=== PATIENT | female | born 1950 | race Two or more races ===

== ENCOUNTER 2017-05-10 13:30 | Outpatient (CLI) | payer MEDICARE, OTHER ==
[~2017-05-10] VITALS: Ht 157.5 cm; Wt 3.2 kg
[2017-05-10 14:03] VITALS: BP 110/48
[2017-05-10] MEDS ORDERED: AMOXICILLIN500 MG ORAL (14:05)
[2017-05-10] MEDS ORDERED: OMEPRAZOLE40 M1 ORAL (14:05)
[2017-05-10] MEDS ORDERED: DICYCLOMINE HCL10 MG PO (14:05)
--- NOTE | 2017-05-10 15:26 | GI Initial Consult Note ---
History of Present Illness General Date patient seen: May 10, 2017 Time patient seen: 15:21 Referring physician: N/A Reason for Consultation: EPIGASTRIC PAIN Present Illness HPI 66 year old female presents today with c/o of epigastric pain that started approximately 6 months ago. Patient states the pain is present on a daily basis now. She states she has pressure on her chest which radiates to the back and also both arms. In addition, the patient has occasional symptoms of GERD. Unknown history of endoscopic procedures. Denies weight loss. Good PO intake. Good BM. Home Meds Reported Medications Amoxicillin* (AMOXIL*) 500 Mg Capsule, 500 MG ORAL EVERY 8 HOURS, CAP 05/10/17 Omeprazole (OMEPRAZOLE) 40 Mg Capsule.dr, 40 MG ORAL DAILY, CAP 05/10/17 Dicyclomine Hcl* (DICYCLOMINE HCL*) 10 Mg Capsule, 20 MG PO QID, CAP 05/10/17 Med list reviewed/reconciled: Yes Allergies: Coded Allergies: No Known Allergies (Unverified , 05/10/17) Patient History History Provided By: Patient PMH Narrative GERD duodenum (small bowel) polyp hx of SBO PSHx 10 years ago, duodenal polyp removal @ [place], [place]. Family History Narrative No history of cancer. Social History: Reports: other - coffee, Denies: alcohol use, drug use, smoking Review of Systems All Other Systems: negative except mentioned in HPI Physical Exam Vital Signs Date Time Temp Pulse Resp B/P Pulse Ox O2 Delivery O2 Flow Rate FiO2 05/10/17 14:03 98.0 79 16 110/48 Sp02 EP Interpretation: reviewed General Appearance: well appearing, no apparent distress, alert Head: normocephalic EENT: PERRL/EOMI, normal ENT inspection Neck: full range of motion, supple Respiratory: lungs clear, no respiratory distress Cardiovascular: normal rate Gastrointestinal: normal inspection, non tender, soft, normal bowel sounds, no bruit Genitourinary: normal inspection Musculoskeletal: back normal Neurologic: normal inspection, alert, oriented x3, responsive Psychiatric: normal inspection, judgement/insight normal, memory normal Skin: normal inspection, normal color, no rash, warm/dry, palpation normal, well hydrated Lymphatic: normal inspection, no adenopathy GI: Plan Problems: (1) Abdominal pain (2) GERD (gastroesophageal reflux disease) (3) Colonoscopy planned Plan EGD/colonoscopy scheduled for 7/28/17. - [facility] & [employer] prep instructions given. Discussed with Dr. Michaud. Thank you for referring this patient. Yvonne Regalado N.P. May 10, 2017 15:26
== END 2017-05-10 15:30 | disposition home or self-care (01) ==
LOC: PAN 13:30
DX: R10.9 Unspecified abdominal pain (principal); K21.9 Gastro-esophageal reflux disease without esophagitis
CPT/HCPCS: 99201

== ENCOUNTER 2017-05-18 07:44 | Day surgery (SDC) | payer MEDICARE, OTHER ==
[2017-05-18] VITALS (8 sets, daily range): BP systolic 111–134; BP diastolic 69–81
[~2017-05-18] VITALS: Ht 157.5 cm; Wt 55.8 kg
[~2017-05-18 07:44] MED LIST: AMOXICILLIN500 MG ORAL; DICYCLOMINE HCL10 MG PO; OMEPRAZOLE40 M1 ORAL
--- NOTE | 2017-05-18 09:49 | Pre-Procedure Note/Attestation ---
Pre-Procedure Note/Attestation Complete Prior to Procedure Planned Procedure: not applicable Procedure Narrative: egd/colon Indications for Procedure Pre-Operative Diagnosis: screening colonoscopy, GERD Attestation I attest that I discussed the nature of the procedure; its benefits; risks and complications; and alternatives (and the risks and benefits of such alternatives ), prior to the procedure, with the patient (or the patient's legal primary care sales representative). I attest that, if there was a reasonable possibility of needing a blood transfusion, the patient (or the patient's legal primary care sales representative) was given the [facility] standardized written summary, pursuant to the [employer] Rashad Blood Safety Act ([place] Health and Safety Code # 1645, as amended). I attest that I re-evaluated the patient just prior to the surgery and that there has been no change in the patient's H&P, except as documented below: NEELIMA RAMIREZ May 18, 2017 09:49
--- NOTE | 2017-05-18 09:50 | Short Stay Surgery H&P ---
History of Present Illness History of Present Illness Chief Complaint see recent consult note HPI Yumiko Maciel is a 66 year old female who was admitted on for Gerd,Colon Screening Patient History Allergies: Uncoded Allergies: Soy product (Adverse Reaction, Unknown, Shortness of Breath, 05/18/17) shaking, rashes all over, itching. PAST MEDICAL HISTORY: Past Surgeries: Social History: Medication History Scheduled Amoxicillin* (Amoxil*), 500 MG ORAL EVERY 8 HOURS, (Reported) Dicyclomine Hcl* (Dicyclomine Hcl*), 20 MG PO QID, (Reported) Omeprazole (Omeprazole), 40 MG ORAL DAILY, (Reported) Physical Exam Vital Signs Last Vital Signs Date Time Temp Pulse Resp B/P Pulse Ox O2 Delivery O2 Flow Rate FiO2 05/18/17 08:40 96.1 85 14 111/69 100 Room Air Plan Attestation Are the patient's medical conditions optimized for surgery? NEELIMA RAMIREZ May 18, 2017 09:50
[2017-05-18] MEDS ORDERED: Propofol 10mg/ml 20ml IV ONE (10:00)
[2017-05-18] MEDS ORDERED: LR 1000ml ONE (10:00)
--- NOTE | 2017-05-18 10:05 | Anethesia Preoperative Eval ---
Anesthesia Pre-op PMH/ROS General Date of Evaluation: May 18, 2017 Time of Evaluation: 09:00 ASA Score: ASA 1 Mallampati Score Class I : Soft palate, uvula, fauces, pillars visible Class II: Soft palate, uvula, fauces visible Class III: Soft palate, base of uvula visible Class IV: Only hard plate visible Mallampati Classification: Class I Allergies: Uncoded Allergies: Soy product (Adverse Reaction, Unknown, Shortness of Breath, 05/18/17) shaking, rashes all over, itching. Anesthesia Pre-op Phys. Exam Physician Exam Last Vital Signs Date Time Temp Pulse Resp B/P Pulse Ox O2 Delivery O2 Flow Rate FiO2 05/18/17 08:40 96.1 85 14 111/69 100 Room Air Ludy Roman MD May 18, 2017 10:05
--- NOTE | 2017-05-18 10:35 | Endoscopy Procedure Note ---
Endoscopy Procedure Note Indication for Procedure: screening colon, GERD Procedures Performed: EGD, colonoscopy Operative Findings/Diagnosis: one colon polyp Specimen: yes Pt Tolerated Procedure Well: Yes Estimated Blood Loss: none Anesthesiologist: yissel Anesthesia: MAC Implant(s) used?: No 50 yrs or older w/o bx or poly: Not Applicable 10yrs. F/U not recommended: Not Applicable NEELIMA RAMIREZ May 18, 2017 10:35
--- NOTE | 2017-05-18 10:54 | Immediate Post-Op Evaluation ---
Immediate Post-Op Evalulation Immediate Post-Op Evalulation Procedure: EGD/Colonoscopy Date of Evaluation: May 18, 2017 Time of Evaluation: 10:45 IV Fluids: 500 Blood Pressure Systolic: 100 Blood Pressure Diastolic: 70 Pulse Rate: 70 Respiratory Rate: 14 O2 Sat by Pulse Oximetry: 99 Temperature (Fahrenheit): 97.5 Nausea: No Vomiting: No Complications none Patient Status: awake, reacts, patent Hydration Status: adequate Drug: none GERARDO BLACKBURN CRNA May 18, 2017 10:54
--- NOTE | 2017-05-18 11:22 | 48 Hour Post Anesthesia Eval ---
Post Anesthesia Evaluation Procedure: EGD/Colonoscopy Date of Evaluation: May 18, 2017 Time of Evaluation: 11:22 Blood Pressure Systolic: 134 0: 81 Pulse Rate: 71 Respiratory Rate: 14 Airway: patent Nausea: No Vomiting: No Hydration Status: adequate Cardiopulmonary Status: stable Mental Status/LOC: patient returned to baseline Post-Anesthesia Complications: none Follow-up care needed: N/A GERARDO BLACKBURN CRNA May 18, 2017 11:22
--- NOTE | 2017-05-18 20:31 | Procedure Note ---
DATE OF PROCEDURE: 05/18/2017 PROCEDURE: Upper endoscopy with biopsy and colonoscopy with biopsy. SURGEON: Ghassan Michaud M.D. ANESTHESIA: Dr. Roman. INSTRUMENT: Olympus adult flexible upper endoscope and colonoscope. INDICATION: Screening colonoscopy evaluation, chronic gastroesophageal reflux disease. REASON FOR PROCEDURE: The procedure, risks, benefits, and possible consequences, including hemorrhage, aspiration, perforation and infection, and alternative treatments, were explained to the patient/legal guardian by Dr. Ghassan Michaud and the patient/legal guardian understood and accepted these risks. PROCEDURE: After informed consent was obtained and the patient was adequately sedated, Olympus upper endoscope was advanced from the mouth into the second portion of duodenum and retroflexion was performed in the stomach. GE junction was found to be about 38 centimeter from the incisors. The patient has evidence of diffuse gastritis. Random biopsy from antrum was obtained to rule out H. pylori infection. The rest of the upper endoscopic examination was within normal limits. The patient tolerated the procedure without any complication. At this time, the upper endoscope was retrieved and the patient was turned over for colonoscopy. First, a rectal exam was performed, which shows normal. Then, the scope was advanced from the cecum, the appendix orifice, ileocecal valve, and right upper quadrant palpation. Quality fair was very good. The patient had one small polyp in the transverse colon, which was removed with cold biopsy forceps technique. The rest of the examination grossly within normal limit. Retroflexion of rectum showed evidence of internal hemorrhoids. SUMMARY FINDINGS: 1. Gastritis, status post biopsy. 2. One colonic polyp removed, see above for details. 3. Internal hemorrhoids. RECOMMENDATIONS: 1. Followup biopsies and treat accordingly. 2. Recommend repeat colonoscopy in five years. Ghassan Michaud M.D. DR: HERBER JOB#: [id number] CC:
--- NOTE | 2017-05-21 18:28 | Cardiology Report ---
APPROVED REPORT EKG Measurement Heart [id number] Normal sinus rhythm Normal ECG
== END 2017-05-18 11:50 | disposition home or self-care (01) ==
LOC: GAS 07:44
DX: Z12.11 Encounter for screening for malignant neoplasm of colon (principal); D12.3 Benign neoplasm of transverse colon; K64.8 Other hemorrhoids; K21.9 Gastro-esophageal reflux disease without esophagitis; K29.50 Unspecified chronic gastritis without bleeding; Z79.899 Other long term (current) drug therapy; Z91.018 Allergy to other foods
CPT/HCPCS: 43239; 45380; 93005; J2704; J7120; 94003; 94150

== ENCOUNTER 2017-05-29 10:54 | Outpatient (CLI) | payer MEDICARE, OTHER ==
--- NOTE | 2017-05-29 12:05 | GI Progress Note ---
Assessment/Plan Problems: (1) Abdominal bloating ICD Codes: R14.0 - Abdominal distension (gaseous) SNOMED: 672318016 (2) Abdominal pain ICD Codes: R10.9 - Unspecified abdominal pain SNOMED: 38344808 (3) GERD (gastroesophageal reflux disease) ICD Codes: K21.9 - Gastro-esophageal reflux disease without esophagitis SNOMED: 175991243 Status: stable Status Narrative Seen with Dr. Michaud. Assessment/Plan S/P EGD/Colonoscopy SUMMARY FINDINGS: >> reviewed with patient 1. Gastritis, status post biopsy. 2. One colonic polyp removed, see above for details. 3. Internal hemorrhoids. RECOMMENDATIONS: labs drawn >> CBC, CMP, amylase/lipase, TSH/Free T4, CEA MRI spine ordered Breath Test @ [facility] after imaging studies and procedure. Followup biopsies and treat accordingly. >> unremarkable Recommend repeat colonoscopy in five years. Subjective Subjective colonoscopy review abdominal pain still present abdominal bloating currently on abx for widsom teeth extraction Objective T 98.1 BP 134/90 P 92 98 RA Denies any weight loss. No changes in medications. General Appearance: alert, lethargic Cardiovascular: normal rate, regular rhythm Respiratory/Chest: chest wall non-tender, lungs clear, normal breath sounds, no respiratory distress Abdominal Exam: normal bowel sounds, non tender, soft Extremities: normal range of motion Yvonne Regalado N.P. May 29, 2017 12:05
[2017-05-29 12:43] LABS: BASOPHILS % (AUTO) 0.8 % (0.0-2.0); EOSINOPHILS % (AUTO) 2.4 % (0.0-3.0); LYMPHOCYTES % (AUTO) 29.7 % (20.0-45.0); MEAN CORPUSCULAR HEMOGLOBIN 30.3 PG (27.0-31.0); MEAN CORPUSCULAR HGB CONC 34.2 G/DL (32.0-36.0); MEAN CORPUSCULAR VOLUME 89 FL (80-99); MEAN PLATELET VOLUME 8.3 FL (6.5-10.1); MONOCYTES % (AUTO) 6.5 % (1.0-10.0); NEUTROPHILS % (AUTO) 60.5 % (45.0-75.0); PLATELET COUNT 191 K/UL (150-450); RED BLOOD COUNT 4.63 M/UL (4.20-5.40); RED CELL DISTRIBUTION WIDTH 11.3 % (11.6-14.8); WHITE BLOOD COUNT 6.6 K/UL (4.8-10.8)
[2017-05-29 12:54] LABS: ALANINE AMINOTRANSFERASE 14 U/L (3-33); ALBUMIN/GLOBULIN RATIO 1.6 (1.0-2.7); AMYLASE 73 U/L (10-110); ANION GAP 13 (5-15); ASPARTATE AMINO TRANSFERASE 17 U/L (5-40); CALCIUM 9.5 mg/dL (8.6-10.2); CARBON DIOXIDE 24 mEQ/L (20-30); CHLORIDE 97 mEQ/L (98-107); CREATININE 0.8 mg/dL (0.5-0.9); GLOMERULAR FILTRATION RATE > 60 mL/min (>60); HEMOLYSIS 6; LIPASE 34 U/L (< 60); POTASSIUM 4.1 mEQ/L (3.4-4.9); SODIUM 134 mEQ/L (135-145); TOTAL PROTEIN 7.2 g/dL (6.6-8.7)
[2017-05-29 14:32] VITALS: BP 134/90
== END 2017-05-29 11:45 | disposition home or self-care (01) ==
LOC: PAN 10:54
DX: R14.0 Abdominal distension (gaseous) (principal); K21.9 Gastro-esophageal reflux disease without esophagitis; R10.9 Unspecified abdominal pain; Z86.010 Personal history of colon polyps; K29.70 Gastritis, unspecified, without bleeding; K64.8 Other hemorrhoids
CPT/HCPCS: 36415; 80053; 82150; 82378; 83690; 84439; 84443; 85025; G0463; 99211